=== PATIENT | female | born 1995 | race Caucasian/White ===

== ENCOUNTER 2017-02-14 02:44 | Emergency (ER) | payer SELFPAY ==
[~2017-02-14] VITALS: Ht 157.5 cm; Wt 49.9 kg
--- NOTE | 2017-02-14 02:48 | ED.ADGEN ---
Adult General Chief Complaint Chief Complaint ".. I drank too much... ".. " I am vomiting..." HPI HPI Patient is a 21 year old female who presents with above hx and complaints of vomiting. Pt. reportedly consumed 1/2 liter of mixed drinks for "[employer] ". Patient denies alcohol problem but did drink to excess tonight. Patient reports to having episodes of vomiting to count. Patient localizes pain to epigastric area. Patient reportedly cannot walk or stand because of her intoxication. No other drug use. No history of trauma. No history of travel. No history of immunosuppression. Review of Systems Review of Systems Constitutional: Denies fever or chills [] Eyes: Denies change in visual acuity, redness, or eye pain [] HENT: Denies nasal congestion or sore throat [] Respiratory: Denies cough or shortness of breath [] Cardiovascular: No additional information not addressed in HPI [] GI: Complaints of epigastric abdominal pain, nausea, vomiting. Denies bloody stools or diarrhea [] : Denies dysuria or hematuria [] Musculoskeletal: Denies back pain or joint pain [] Integument: Denies rash or skin lesions [] Neurologic: Denies headache, focal weakness or sensory changes [] Endocrine: Denies polyuria or polydipsia [] Family History Family History Noncontributory Current Medications Current Medications Current Medications Medications (Trade) Dose Ordered Sig/Indra Start Time Stop Time Status Last Admin Dose Admin Famotidine 20 mg 20 mg 1X ONCE 02/14/17 03:15 02/14/17 03:16 DC 02/14/17 03:15 20 MG Folic Acid 5 mg STK-MED ONCE 02/14/17 03:20 02/14/17 03:21 DC Folic Acid 5 mg 5 mg STK-MED ONCE 02/14/17 03:17 02/14/17 03:18 DC Lactated Ringer's (Iv Lactated Ringers) 0 ml @ As Directed STK-MED ONCE 02/14/17 03:19 02/14/17 03:20 DC Multivitamins/ Minerals (Infuvite Adult) 10 ml STK-MED ONCE 02/14/17 03:19 02/14/17 03:20 DC Multivitamins/ Minerals/Folic Acid/Thiamine HCl/ Lactated Ringer's (Infuvite Adult/ Iv Lactated Ringers) 1,011.2 ml @ 1,000 mls/ hr 1X ONCE 02/14/17 03:15 02/14/17 04:15 DC 02/14/17 03:15 1,000 MLS/HR Ondansetron HCl (Zofran) 8 mg 1X ONCE 02/14/17 03:15 02/14/17 03:16 DC 02/14/17 03:15 8 MG Thiamine HCl 200 mg STK-MED ONCE 02/14/17 03:19 02/14/17 03:20 DC See nursing for home meds Allergies Allergies Allergies Coded Allergies Type Severity Reaction Last Updated Verified No Known Drug Allergies 02/14/17 No See nursing Physical Exam Physical Exam Constitutional: Well developed, well nourished, in acute distress, non-toxic appearance. Tearful HENT: Normocephalic, atraumatic, bilateral external ears normal, oropharynx moist, no oral exudates, nose normal. [] Eyes: PERRLA, EOMI, conjunctiva normal, no discharge. [] Neck: Normal range of motion, no tenderness, supple, no stridor. [] Cardiovascular:Tachycardia Heart rate regular rhythm, no murmur appreciated [] Lungs & Thorax: Bilateral breath sounds equal at apexes auscultation [] Abdomen: Bowel sounds hyperactive, soft, epi gastric tenderness, no masses, no pulsatile masses. No true rebound Skin: Warm, dry, no erythema, no rash. [] Back: No tenderness, no CVA tenderness. [] Extremities: No tenderness, no cyanosis, no clubbing, ROM intact, no edema. No psoas or obturator[] Neurologic: Alert and oriented X 3, no gross motor function defects, normal sensory function, no focal deficits noted. Discoordinated. Wide gait. Psychologic: Affect anxious and tearful ,judgement poor insight, mood depressed Current Patient Data Vital Signs Vital Signs Date Time Temp Pulse Resp B/P Pulse Ox O2 Delivery O2 Flow Rate FiO2 02/14/17 03:47 59 135/52 02/14/17 02:58 20 98 Room Air Lab Results Laboratory Tests Test 02/14/17 03:30 White Blood Count 10.7x10^3/uL (4.0-11.0) Red Blood Count 4.25x10^6/uL (3.50-5.40) Hemoglobin 13.1g/dL (12.0-15.5) Hematocrit 38.4% (36.0-47.0) Mean Corpuscular Volume 90fL (79-100) Mean Corpuscular Hemoglobin 31pg (25-35) Mean Corpuscular Hemoglobin Concent 34g/dL (31-37) Red Cell Distribution Width 12.2% (11.5-14.5) Platelet Count 324x10^3/uL (140-400) Neutrophils (%) (Auto) 58% (31-73) Lymphocytes (%) (Auto) 33% (24-48) Monocytes (%) (Auto) 6% (0-9) Eosinophils (%) (Auto) 3% (0-3) Basophils (%) (Auto) 1% (0-3) Neutrophils # (Auto) 6.2x10^3uL (1.8-7.7) Lymphocytes # (Auto) 3.6x10^3/uL (1.0-4.8) Monocytes # (Auto) 0.6x10^3/uL (0.0-1.1) Eosinophils # (Auto) 0.3x10^3/uL (0.0-0.7) Basophils # (Auto) 0.1x10^3/uL (0.0-0.2) Urine Collection Type Unknown Urine Color Straw Urine Clarity Clear Urine pH 6.5 Urine Specific Mineral 1.010 Urine Protein Neg (NEG-TRACE) Urine Glucose (UA) Negmg/dL (NEG) Urine Ketones (Stick) Negmg/dL (NEG) Urine Blood Mod (NEG) Urine Nitrite Neg (NEG) Urine Bilirubin Neg (NEG) Urine Urobilinogen Dipstick 0.2mg/dL (0.2 mg/dL) Urine Leukocyte Esterase Neg (NEG) Urine RBC 3-5/HPF (0-2) Urine WBC Occ/HPF (0-4) Urine Squamous Epithelial Cells Few/LPF Urine Amorphous Sediment Present/HPF Urine Bacteria Few/HPF (0-FEW) Urine Mucus Slight/LPF Sodium Level 142mmol/L (136-145) Potassium Level 3.9mmol/L (3.5-5.1) Chloride Level 105mmol/L (98-107) Carbon Dioxide Level 22mmol/L (21-32) Anion Gap 15 (6-14) H Blood Urea Nitrogen 14mg/dL (7-20) Creatinine 0.9mg/dL (0.6-1.0) Estimated GFR (Cockcroft-Gault) 80.7 Glucose Level 96mg/dL (70-99) Calcium Level 10.8mg/dL (8.5-10.1) H Amylase Level 69U/L (25-115) Lipase 204U/L (73-393) Serum Test, Qualitative Negative (NEG) Urine Opiates Screen Neg (NEG) Urine Methadone Screen Neg (NEG) Urine Barbiturates Neg (NEG) Urine Phencyclidine Screen Neg (NEG) Urine Amphetamine/Methamphetamine Neg (NEG) Urine Benzodiazepines Screen Neg (NEG) Urine Cocaine Screen Neg (NEG) Urine Cannabinoids Screen Neg (NEG) Ethyl Alcohol Level 180mg/dL (0-10) H Urine Ethyl Alcohol Pos (NEG) EKG EKG [] Radiology/Procedures Radiology/Procedures My interpretation of Acute Abd. - no free air under diaphragm. Non-specific bowel gas pattern. [] Course & Med Decision Making Course & Med Decision Making Pertinent Labs and Imaging studies reviewed. (See chart for details) Stay on a clear fluid diet for the next 24 hours. No solid or milk products. Take [id number] calcium tabs and milk of magnesia for stomach upset. Avoid excessive alcohol use. Follow-up primary care. Return emergent changes. [] Final Impression Final Impression 1. Alcohol Abuse[] 2. Nausea and Vomiting Problems: Dragon Disclaimer Dragon Disclaimer This electronic medical record was generated, in whole or in part, using a voice recognition dictation system. SUSAN NARANJO MD Feb 14, 2017 02:48
[2017-02-14] MEDS ORDERED: IV RINGERS SOLUTION,LACTATED 1,000 ML IV SCH (03:15)
[2017-02-14] MEDS ORDERED: MVI, ADULT NO.4 WITH VIT K 10 ML, FOLIC ACID SYRINGE for ER 1 MG, THIAMINE 100 MG in IV... IV ONE ×4 (03:15)
[2017-02-14] MEDS ORDERED: FAMOTIDINE 20 MG/2 ML VIAL IVP ONE (03:15)
[2017-02-14] MEDS ORDERED: ONDANSETRON PF 4 MG/2 ML VIAL. IV ONE (03:15)
[2017-02-14] MEDS ORDERED: MVI, ADULT NO.4 WITH VIT K 10 ML VIAL IV ONE ×2 (03:16→03:19)
[2017-02-14] MEDS ORDERED: FOLIC ACID 5 MG/ML SYRINGE for ER IV ONE ×2 (03:17→03:20)
[2017-02-14] MEDS ORDERED: IV RINGERS SOLUTION,LACTATED 0 ML IV ONE (03:19)
[2017-02-14] MEDS ORDERED: THIAMINE 200 MG/2 ML VIAL. IV ONE (03:19)
[2017-02-14 03:47] VITALS: BP 135/52
[2017-02-14 03:49] LABS: BASO # 0.1 x10^3/uL (0.0-0.2); BASO % 1 % (0-3); EOS # 0.3 x10^3/uL (0.0-0.7); EOS % 3 % (0-3); HEMATOCRIT 38.4 % (36.0-47.0); HEMOGLOBIN 13.1 g/dL (12.0-15.5); LYMPH # 3.6 x10^3/uL (1.0-4.8); LYMPH % 33 % (24-48); MEAN CORPUSCULAR HEMOGLOBIN 31 pg (25-35); MEAN CORPUSCULAR HGB CONC 34 g/dL (31-37); MEAN CORPUSCULAR VOLUME 90 fL (79-100); MONO # 0.6 x10^3/uL (0.0-1.1); MONO % 6 % (0-9); NEUT # 6.2 x10^3uL (1.8-7.7); NEUT % 58 % (31-73); PLATELET COUNT 324 x10^3/uL (140-400); RED BLOOD COUNT 4.25 x10^6/uL (3.50-5.40); RED CELL DISTRIBUTION WIDTH 12.2 % (11.5-14.5); WHITE BLOOD COUNT 10.7 x10^3/uL (4.0-11.0)
[2017-02-14 03:51] LABS: PREG TEST PT QUAL NEGATIVE (NEG)
[2017-02-14 03:59] LABS: BACTERIA,URINE FEW /HPF (0-FEW); BILIRUBIN,URINE NEG (NEG); CALCIUM 10.8 mg/dL (8.5-10.1); CLARITY,URINE CLEAR; COLOR,URINE STRAW; CREATININE 0.9 mg/dL (0.6-1.0); GFR 80.7; GLUCOSE,URINE NEG (NEG); NITRITE,URINE NEG (NEG); POTASSIUM 3.9 mmol/L (3.5-5.1); SQUAMOUS EPITHELIAL CELL,UR FEW /LPF; UROBILINOGEN,URINE 0.2 mg/dL (0.2 mg/dL); WBC,URINE OCC /HPF (0-4)
[2017-02-14 04:00] LABS: AMORPHOUS SEDIMENT,UR PRESENT /HPF
[2017-02-14 04:04] LABS: BARBITURATES NEG (NEG); BENZODIAZEPINES NEG (NEG); CANNABINOIDS NEG (NEG); COCAINE NEG (NEG); METHADONE NEG (NEG); OPIATES NEG (NEG); PHENCYCLIDINE NEG (NEG)
[2017-02-14 04:10] LABS: AMPHETAMINE/METHAMPHETAMINE NEG (NEG)
== END 2017-02-14 04:53 | disposition home or self-care (01) ==
LOC: ER 02:44
DX: F10.10 Alcohol abuse, uncomplicated (principal); R11.2 Nausea with vomiting, unspecified; R10.13 Epigastric pain
CPT/HCPCS: 36415; 80048; 80305; 80320; 81001; 82150; 83690; 84703; 85027; 96365; 96375; 99284; J2405; J7120; S0028; G0480; G0481